=== PATIENT | male | born 1945 | race Caucasian/White ===

== ENCOUNTER 2017-03-18 11:57 | Outpatient (CLI) | payer OTHER ==
--- NOTE | 2017-03-18 14:55 | Diagnostic Imaging Report ---
Indication: History of skin cancer, neurological symptoms, autism, suspected metastases Technique: sagittal T1 fast spin echo, axial T1 and T2 FLAIR PROPELLER, axial T2 FS PROPELLER, T2* GRE, axial diffusion weighted images, post contrast axial and coronal T1 FLAIR PROPELLER images. ADC and exponential ADC maps generated Comparison: None Findings: There is some image degradation due to motion artifact, particularly on the postcontrast images.. No abnormal areas of restricted diffusion to suggest acute infarction. No acute hemorrhage or edema. No mass effect nor midline shift. No abnormal contrast enhancement. There is mild age-related enlargement of the ventricles and extra-axial CSF spaces. There is nonspecific bilateral periventricular T2 hyperintensity, most likely on the basis of chronic ischemic change. The vascular flow voids are preserved.. The orbits are unremarkable. There is bilateral maxillary sinus mucosal disease.. . Impression: Negative for acute intracranial bleed, mass effect, or infarct No edema or contrast enhancing lesion to suggest vertebral metastasis demonstrated Chronic and age-related changes, as described Periventricular deep white matter T2 hyperintensity, most likely on the basis of chronic ischemic changes. Demyelinating disease not excludable
--- NOTE | 2017-03-19 09:13 | Diagnostic Imaging Report ---
Indication: History of skin cancer, suspected metastases, neurological symptoms, history of autism Technique: Sagittal sagittal T1, sagittal and axial T2 FRFSE, sagittal STIR, axial T1, pre-and postcontrast sagittal and axial fat-saturated T1-weighted images Comparison: None Findings: Vertebral body bony alignment is normal. Vertebral body marrow signal is normal except for mild degenerative Modic changes. Vertebral body heights are preserved. The discs are desiccated, except for the T12-L1 disc. The conus medullaris terminates at the L1 level. At T12-L1, no significant disc bulge or protrusion, spinal stenosis, or neural foraminal stenosis. At L1-2, there is mild degenerative disc narrowing. There is broad-based mild posterior and right intraforaminal disc protrusion which may result in mild compromise of the right neural foramen. At L2-3, there is mild degenerative disc narrowing. No significant disc bulge or protrusion, spinal stenosis, or neural foraminal stenosis. At L3-4, no significant disc bulge or protrusion, spinal stenosis, or neural foraminal stenosis. The disc space is preserved At L4-5, there is mild circumferential annular bulge. This does not result in significant compromise of the spinal canal. It may results result in minimal compromise of the bilateral neural foramina. The disc space is preserved At L5-S1, there is mild circumferential annular bulge which does not significantly narrow the spinal canal. This may slightly compromise the bilateral neural foramina. No abnormal contrast enhancement is demonstrated. There is a small right renal cysts incidentally noted. The included extraspinal soft tissues are otherwise unremarkable. Impression: No acute or significant abnormality demonstrated. No evidence of metastatic disease. Mild degenerative changes as delineated on a level by level basis above.
== END 2017-03-18 13:27 | disposition home or self-care (01) ==
LOC: MRI 11:57
DX: M51.36 Other intervertebral disc degeneration, lumbar region (principal); Z85.828 Personal history of other malignant neoplasm of skin; J32.0 Chronic maxillary sinusitis
CPT/HCPCS: 70553; 72158; A9585